=== PATIENT | female | born 1960 | race Caucasian/White ===

== ENCOUNTER 2018-09-11 05:41 | Inpatient (IN) | payer BC ==
--- NOTE | 2018-08-31 18:31 | HP ---
HISTORY AND PHYSICAL: DATE OF ADMISSION/SURGERY: 09/11/18 DATE OF OFFICE VISIT: 08/31/18 SURGEON: Di Li MD * (DICTATED BY MARYLOU BAILEY) PROCEDURE: Right total knee arthroplasty. CHIEF COMPLAINT: Right knee pain. HISTORY OF PRESENT ILLNESS: Ms. Feliciano is a 57-year-old female with continued complaints of right knee pain. She has failed conservative treatment and elected to proceed with a right total knee arthroplasty. PAST MEDICAL HISTORY: Hypertension, psoriatic arthritis, anxiety, sleep apnea, and diverticulitis. PAST SURGICAL HISTORY: Bowel resection. CURRENT MEDICATIONS: 1. Humira. 2. Methotrexate 2.5 mg. 3. Amlodipine/benazepril 5/10 mg daily. 4. Alprazolam 0.5 mg . 5. Glucosamine chondroitin complex. 6. Cetirizine 5 mg daily. 7. Famotidine 20 mg daily. 8. Folic acid 1 mg a day. 9. Zolpidem 5 mg q.h.s. as needed. ALLERGIES: To PENICILLIN. FAMILY HISTORY: RA and coronary artery disease. SOCIAL HISTORY: She is a 57-year-old female. She lives with her . She does not smoke or use drugs. Uses occasional alcohol. REVIEW OF SYSTEMS: A complete 14-point review of systems was reviewed with the patient. It was positive for some occasional vertigo. She denies history of DVT, PE, hepatitis, HIV or anesthesia problems. PHYSICAL EXAMINATION GENERAL: She is well developed, well nourished, in no acute distress. VITAL SIGNS: She stands 63 inches tall, weighs 243 pounds. Blood pressure is 122/86, heart rate is 80. HEENT: Normocephalic, atraumatic. NECK: Supple. No palpable lymph nodes. PULMONARY: The lungs are clear to auscultation bilaterally. CARDIO: Regular rate and rhythm. Strong S1, S2. ABDOMEN: Soft, nontender, nondistended. NEUROLOGICAL: She is alert and oriented x3. MUSCULOSKELETAL: Right lower extremity, the skin is intact. There are no open wounds or abrasions. There is a moderate joint effusion. She has some tenderness over the medial and lateral joint line. Range of motion is 5 to 120 degrees of flexion. 2+ dorsalis pedis pulse, intact sensation. Her lower extremity muscle group strengths are intact at 5/5. ASSESSMENT AND PLAN: Ms. Feliciano is a 57-year-old female with end-stage osteoarthritis of the right knee. She has failed conservative treatment and elected to proceed with a right total knee arthroplasty. Surgery is scheduled for 09/11/[address] Li discussed the risks and benefits of the surgery at today's visit and all of her questions were answered. She will follow up with Dr. Li in 2 weeks after the surgery. MARYLOU BAILEY [id number]/[facility] #: [id number] MTDCari
[~2018-09-11 05:41] MED LIST: Buffered Lidocaine 1% SYRIN* 1 ML/SYRINGE INTRADERM ONE; Tranexamic Acid 1,000 MG in NS 0.9% 50 ML* (outpatient use) IV SCH
--- OUTSIDE RECORDS SUMMARY | 2018-09-11 05:44 | XMS REPORT | Continuity of Care Document ---
:1960 External Reference #:[id number] Author Name Brandie Cullen Care Team Providers Name Role Phone Irma Hernandez MD Primary Care Physician Unavailable Payers Type Date Identification Numbers Payment Provider Subscriber Policy Number: [id number] [employer] Marlee Feliciano PayID: [id number] [address] [address] [place] [address] Advance Directives Description No Information Available Problems Date Description Provider Status Onset: 06/20/2018 Psoriasis with arthropathy Di Li M.D. Active Onset: 06/20/2018 Morbid obesity Di Li M.D. Active Onset: 06/20/2018 Localized, primary osteoarthritis Di Li M.D. 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 ETOH Use Occasionally consumes alcohol Tobacco Use Start: Unknown End: Patient is a former smoker Unknown Smoking Status Reviewed: 08/31/18 Patient is a former smoker Exercise Type/Frequency Exercises sporadically Allergies, Adverse Reactions, Alerts Date Description Reaction Status Severity Comments 06/20/2018 Penicillin Active Medications Medication Date Status Form Strength Qnty SIG Indications Ordering Provider Humira Pen Active PNKT 40mg/0.8ML Lefty Amador MD Methotrexate Active Tablets 2.5mg Amador, Sodium MD Joselito Amlodipine Active Capsules 5-10mg Cannariato, Besylate/Benazepr Irma Avendaño MD Alprazolam Active Tablets 0.5mg Shareeariadontae Irma Avendaño MD Turmeric Active Unknown 00 Glucosamine Active Unknown Chondroitin 00 Complex Cetirizine HCL Active Tablets 5mg Unknown 00 Immunizations Description No Information Available Vital Signs Date Vital Result Comment 08/31/2018 8:55am Height 63.5 inches 5'3.50" Weight 243.00 lb Heart Rate 80 /min BP Systolic 122 mmHg BP Diastolic 86 mmHg Respiratory Rate 12 /min Body Temperature 97.9 F Pain Level 26 BMI (Body Mass Index) 42.4 kg/m2 06/20/2018 8:12am Height 63.5 inches 5'3.50" Weight 242.00 lb Heart Rate 76 /min BP Systolic 114 mmHg BP Diastolic 60 mmHg BMI (Body Mass Index) 42.2 kg/m2 Results Description No Information Available Procedures Date Code Description Status 08/09/2016 91398 Treadmill Interp/Report Only Completed 08/09/2016 85502 Stress Test Supervsn W/Out I/R Completed 08/09/2016 50977 EKG, Interpretation Only Completed 10/14/2013 03423 ECHO Transthorasic Realtime 2D W Doppler & Color Flow Hosp Completed 10/14/2013 03183 Treadmill Interp/Report Only Completed 10/14/2013 75187 Stress Test Supervsn W/Out I/R Completed 10/14/2013 19618 EKG, Interpretation Only Completed 10/13/2013 04054 EKG, Interpretation Only Completed Encounters Type Date Location Provider Dx Diagnosis Office Visit 06/20/2018 [facility], M25.561 Pain in right 8:00a [facility] knee M25.461 Effusion, right knee M17.11 Unilateral primary osteoarthritis, right knee E66.01 Morbid (severe) obesity due to excess calories L40.50 Arthropathic psoriasis, unspecified Z68.41 Body mass index (BMI) 40.0-44.9, adult Office Visit 08/10/2016 12:25p [facility] Kaylan R07.9 Chest pain, Assocmarylou M.D. unspecified Hospitalists I10 Essential (primary) hypertension Office Visit 08/08/2016 [facility] Cande Vogel R07.9 Chest pain, 12:24p marylou Parra M.D. unspecified Hospitalists I10 Essential (primary) hypertension Office Visit 10/15/2013 11:18a [facility] Emmie 786.51 Pain Precordial Assoc,marylou Walalce D.O. Hospitalists 401.9 Hypertension Unspec 696.0 Psoriatic Arthropathy Office Visit 10/13/2013 [facility] 786.51 Pain Precordial 11:17a Assoc,marylou Pruitt M.D. Hospitalists 401.9 Hypertension Unspec 696.0 Psoriatic Arthropathy Plan of Treatment Future Appointment(s):09/11/2018 7:30 am - Shorty Canas PA-C at [facility].09/11/2018 7:30 am - MARYLOU Marie at [facility].09/11/2018 7:30 am - Di Li M.D. at [facility]..08/31/2018 - Di Li M.D.M25.561 Pain in right kneeFollow up:Follow up: 2 weeks after rgyrnazP79.461 Effusion, right kneeM17.11 Unilateral primary osteoarthritis, right knee
[2018-09-11] MEDS ORDERED: Famotidine IV* 10 MG/ML 2 ML (20 mg) IV ONE (06:00)
[2018-09-11] MEDS ORDERED: Lactated Ringers 1000 ML Bag* 1,000 ML IV SCH (06:00)
[2018-09-11] MEDS ORDERED: Acetaminophen TAB* 325 MG PO ONE (06:00)
[2018-09-11] MEDS ORDERED: Gabapentin CAP(*) 300 MG PO ONE (06:00)
[2018-09-11] MEDS ORDERED: ROPIVACAINE 5 MG/ML 30 ML BTL (0.5%) ONE ×2 (06:51→06:53)
[2018-09-11] MEDS ORDERED: Ondansetron INJ* 2 MG/ML VIAL ONE (06:53)
[2018-09-11] MEDS ORDERED: Dexamethasone IV* 4 MG/ML 1 ML (4 MG) ONE (06:53)
[2018-09-11] MEDS ORDERED: fentaNYL* 50 MCG/ML 2 ML VIAL (100 MCG VIAL) ONE ×3 (06:53→11:05)
[2018-09-11] MEDS ORDERED: Propofol* 10 MG/ML 20 ML BTL ONE (06:53)
[2018-09-11] MEDS ORDERED: KETAMINE HCL* 50 MG/ML 10 ML VIAL ONE (06:53)
[2018-09-11] MEDS ORDERED: Lidocaine 2% PF * 5 ML VIAL ONE ×2 (06:53→08:35)
[2018-09-11] MEDS ORDERED: Midazolam* 1 MG/ML 10 ML VIAL (10 MG) ONE (06:54)
[2018-09-11] MEDS ORDERED: Acetaminophen TAB* 325 MG ONE (07:12)
[2018-09-11] MEDS ORDERED: Gabapentin CAP(*) 300 MG ONE (07:12)
[2018-09-11] MEDS ORDERED: Famotidine IV* 10 MG/ML 2 ML (20 mg) ONE (07:12)
[2018-09-11] MEDS ORDERED: Clindamycin 900 MG/D5W BAG(*) 900 MG/50 ML BAG IVPB ONE (07:12)
[2018-09-11] MEDS ORDERED: Phenylephrine INJ* 10 MG/ML 1 ML VIAL (10 MG) ONE (08:25)
[2018-09-11] MEDS ORDERED: fentaNYL* 50 MCG/ML 5 ML VIAL (250 MCG VIAL) ONE (08:33)
[2018-09-11] MEDS ORDERED: Propofol* 500 MG/50 ML BTL ONE (08:35)
[2018-09-11] MEDS ORDERED: Ketorolac INJ* 30 MG/ML 1 ML VIAL ONE (09:36)
[2018-09-11] MEDS ORDERED: Naloxone* 0.4 MG/ML 1 ML VIAL IV PRN (09:39)
[2018-09-11] MEDS ORDERED: Ondansetron INJ* 2 MG/ML VIAL IV PRN ×2 (09:39→10:32)
[2018-09-11] MEDS ORDERED: HYDROmorphone INJ1* 1 MG/ML SYRINGE IV PRN (09:39)
[2018-09-11] MEDS ORDERED: HYDROmorphone INJ1* 1 MG/ML SYRINGE ONE (10:13)
[2018-09-11] MEDS ORDERED: diPHENhydraMINE IV* 50 MG/ML 1 ml VIAL (BENADRYL) IV PRN (10:32)
[2018-09-11] MEDS ORDERED: traMADol TAB* 50 MG PO PRN (10:32)
[2018-09-11] MEDS ORDERED: Polyethylene Glycol 3350* 17 GM PACKET PO PRN (10:32)
[2018-09-11] MEDS ORDERED: Magnesium Hydroxide LIQ* 30 ML UDC PO PRN (10:32)
[2018-09-11] MEDS ORDERED: Bisacodyl SUPP* 10 MG SUPP PR PRN (10:32)
[2018-09-11] MEDS ORDERED: oxyCODONE/Acetamin 5/325 MG* TAB PO PRN (10:32)
[2018-09-11] MEDS ORDERED: Ondansetron TAB* 4 MG PO PRN (10:32)
[2018-09-11] MEDS: fentaNYL* 50 MCG/ML 2 ML VIAL (100 MCG VIAL) IV PRN ×3 (10:34→11:06)
[2018-09-11] MEDS ORDERED: Zolpidem TAB* 5 MG PO PRN ×2 (10:36→11:43)
[2018-09-11] MEDS ORDERED: ALPRAZOLAM 0.5 MG PO PRN (10:36)
[2018-09-11] MEDS ORDERED: ALPRAZolam TAB* 0.25 MG PO PRN (11:42)
[2018-09-11] MEDS ORDERED: Morphine INJ* 2 MG/ML 1 ML SYRINGE (TWO MG - NEW SYRINGE VERSION) ONE (11:43)
--- NOTE | 2018-09-11 11:46 | CONSULT ---
Subjective Date of Service: 09/11/18 Interval History: 57 yr old female with pmh of htn, psoriatic arthritis, anxiety, sleep apnea ( uses cpap), and diverticulitis; who presented today for an elective right total knee replacement after failing conservative treatment for knee pain. On assessment patient is resting in PACU on room air. States pain in right knee is controlled. Denies cp, palpitations, nausea, vomiting, diarrhea, fever, chills, sob, numbness/tingling. Family History: Unchanged from Admission Social History: Unchanged from Admission Past Medical History: Unchanged from Admission Review of Systems - Measurements Intake and Output: Intake and Output Last 24 Hours 09/09/18 09/10/18 09/11/18 09/12/18 06:59 06:59 06:59 06:59 Intake Total 1950 Output Total 400 Balance 1550 Weight 111.584 kg Intake: IV Fluids 1850 LR 1800 NS 50ML, Cefazolin 2G 50 Oral 100 Output: Sapp 400 - Review of Systems Constitutional Symptoms: Negative: Weakness, Fever HEENT: Positive: Normal Eyes: Positive: Normal Pulmonary: Negative: Cough, Wheezing, Shortness of Breath, Home Oxygen - but does use CPAP for MICHELLE Cardiology: Negative: Chest Pain, Shortness of Breath, Palpitations Gastroenterology: Positive: Other - Reports last BM was this morning Negative: Abdominal Pain, Nausea, Vomiting Musculoskeletal: Positive: Arthritis - Reports hx of psoriatic arthritis Negative: Joint Pain Endocrinology: Negative: Diabetes Mellitus Neurology: Negative: Headache, Numbness\Paresthesiae Objective Active Medications: Acetaminophen (Tylenol Tab*) 975 mg PO ONCE ONE Stop: 09/11/18 06:01 Last Admin: 09/11/18 07:21 Dose: 975 mg Acetaminophen (Tylenol Tab*) 975 mg PO Q8H KAMILLE Bisacodyl (Dulcolax Supp*) 10 mg FL DAILY PRN PRN Reason: constipation Cyclobenzaprine HCl (Flexeril Tab*) 10 mg PO TID PRN PRN Reason: SPASMS Diphenhydramine HCl (Benadryl Iv*) 12.5 mg IV Q6H PRN PRN Reason: PRURITIS Docusate Sodium (Colace Cap*) 100 mg PO BID KAMILLE Enoxaparin Sodium (Lovenox(*)) 40 mg SUBCUT Q24H KAMILLE Famotidine (Pepcid Iv*) 20 mg IV ONCE ONE Stop: 09/11/18 06:01 Last Admin: 09/11/18 07:21 Dose: 20 mg Fentanyl Citrate (Fentanyl*) 50 mcg IV Q5M PRN PRN Reason: PAIN - MODERATE Last Admin: 09/11/18 11:06 Dose: 50 mcg Gabapentin (Neurontin Cap(*)) 300 mg PO ONCE ONE Stop: 09/11/18 06:01 Last Admin: 09/11/18 07:21 Dose: 300 mg Hydromorphone HCl (Dilaudid Inj1s*) 0.5 mg IV Q10M PRN PRN Reason: PAIN - SEVERE Lactated Ringer's (Lactated Ringers 1000 Ml Bag*) 1,000 mls @ 125 mls/hr IV PER RATE KAMILLE Tranexamic Acid 1,000 mg/ (Sodium Chloride) 60 mls @ 120 mls/hr IV ONCE Stop: 09/11/18 23:59 Clindamycin HCl/Dextrose (Cleocin 600 Mg Ivpremix(*) Sdv) 600 mg in 50 mls @ 100 mls/hr IV Q8H KAMILLE Stop: 09/12/18 03:29 Lactated Ringer's (Lactated Ringers 1000 Ml Bag*) 1,000 mls @ 100 mls/hr IV PER RATE KAMILLE Lactulose (Lactulose*) 30 ml PO Q6H PRN PRN Reason: constipation Lidocaine/Sodium Bicarbonate (Buffered Lidocaine 1% Syrin*) 0.2 ml INTRADERM ONCE ONE Stop: 09/10/18 13:18 Last Admin: 09/11/18 10:34 Dose: Not Given Magnesium Hydroxide (Milk Of Magnesia Liq*) 30 ml PO BID KAMILLE Magnesium Hydroxide (Milk Of Magnesia Liq*) 30 ml PO Q6H PRN PRN Reason: constipation Morphine Sulfate (Morphine Vial*) 2 mg IV Q2H PRN PRN Reason: PAIN Naloxone HCl (Narcan*) 0.08 mg IV Q2M PRN PRN Reason: severe induced resp depression Non-Formulary Medication (Famotidine) 20 mg PO BEDTIME KAMILLE Non-Formulary Medication (Alprazolam [Alprazolam Er]) 0.5 mg PO DAILY PRN PRN Reason: ANXIETY Ondansetron HCl (Zofran Inj*) 4 mg IV ONCE PRN PRN Reason: NAUSEA/VOMITING Ondansetron HCl (Zofran Inj*) 4 mg IV Q6H PRN PRN Reason: nausea Ondansetron HCl (Zofran Tab*) 4 mg PO Q6H PRN PRN Reason: NAUSEA Oxycodone HCl (Roxycodone Tab*) 10 mg PO Q4H PRN PRN Reason: SEVERE PAIN Oxycodone/Acetaminophen (Percocet 5/325 Tab*) 1 tab PO Q4H PRN PRN Reason: PAIN Oxycodone/Acetaminophen (Percocet 5/325 Tab*) 2 tab PO Q4H PRN PRN Reason: PAIN Polyethylene Glycol/Electrolytes (Miralax*) 17 gm PO DAILY PRN PRN Reason: Constipation Tramadol HCl (Ultram*) 50 mg PO Q6H PRN PRN Reason: PAIN Warfarin Sodium (Coumadin Tab(*)) 6 mg PO ONCE@1700 ONE; Protocol Stop: 09/11/18 17:01 Zolpidem Tartrate (Ambien Tab*) 5 mg PO BEDTIME PRN PRN Reason: SLEEP Vital Signs - 8 hr 09/11/18 09/11/18 09/11/18 07:15 10:30 10:31 Temperature 97.3 F 97.3 F Pulse Rate 90 72 72 Respiratory 16 9 22 Rate Blood Pressure 125/79 111/76 (mmHg) O2 Sat by Pulse 97 97 95 Oximetry 09/11/18 09/11/18 09/11/18 10:34 10:36 10:41 Temperature Pulse Rate 66 71 Respiratory 18 17 14 Rate Blood Pressure 126/71 123/78 (mmHg) O2 Sat by Pulse 98 98 Oximetry 09/11/18 09/11/18 09/11/18 10:46 10:47 11:00 Temperature Pulse Rate 69 71 Respiratory 16 18 14 Rate Blood Pressure 130/77 (mmHg) O2 Sat by Pulse 99 100 Oximetry 09/11/18 09/11/18 09/11/18 11:01 11:06 11:16 Temperature Pulse Rate 75 72 Respiratory 16 Rate Blood Pressure 112/78 116/75 (mmHg) O2 Sat by Pulse 100 98 Oximetry 09/11/18 09/11/18 11:30 11:31 Temperature 98.6 F Pulse Rate 66 Respiratory Rate Blood Pressure 119/76 (mmHg) O2 Sat by Pulse 100 Oximetry Oxygen Devices in Use Now: None Appearance: Well appearing, NAD Ears/Nose/Mouth/Throat: Clear Oropharnyx, Mucous Membranes Moist Respiratory: Symmetrical Chest Expansion and Respiratory Effort, Clear to Auscultation Cardiovascular: NL Sounds; No Murmurs; No JVD, RRR, No Edema Abdominal: NL Sounds; No Tenderness; No Distention Lymphatic: No Cervical Adenopathy Extremities: No Clubbing, Cyanosis Skin: No Rash or Ulcers, - - Dressing to right knee is CDI Neurological: Alert and Oriented x 3 Assessment/Plan - Billing Plan By Medical Problem: 1. S/P Right total knee replacement: Management per ortho 2. HTN: Patient's current BP is 119/76. Due to her post op status I would recommend holding her Amlodipine/Benazepril for today (as she takes it in the evening). Monitor her BP routinely and reassess restarting medication. It would also be possible to restart one component of this medication at a time such as starting with Amlodipine and last adding ROSITA. Either way, I have discontinued it for this evening. 3. Psoriatic Arthritis: Patient was instructed by her rheum provider to hold her Tamika and Methotrexate 2 weeks prior to surgery which she did. She reports he/she instructed her to restart one week after surgery. This can be deferred to primary care and rheum specialist 4. Anxiety: Patient takes Alprazolam 0.5 mg daily as needed which can be continued. I have added instruction to hold for sedation. 5. MICHELLE: Patient is compliant and wears CPAP at night. Her has brought her machine in for her, therefore, I have placed on order for patient to use own CPAP. I have also placed an ordered to have patient's pulse oximetry monitored overnight. 6. Hx of diverticulitis: No signs/symptoms. Cont bowel medications. Last BM today prior to surgery per patient. VTE PPX: Per ortho management who has ordered Lovenox and Coumadin Diet: Patient can have a regular diet as tolerated Code Status: Full Code Admission Status and Rationale: Patient is inpatient for right total knee replacement. Thank you for allowing us to assist in this patient's care. We will follow along with you during her hospital stay. Attending: Kaylan Patten
[2018-09-11] MEDS ORDERED: oxyCODONE TAB* 5 MG TAB ONE (12:14)
[2018-09-11] MEDS: oxyCODONE TAB* 5 MG TAB PO PRN ×3 (12:18→21:01)
[2018-09-11] MEDS: Lactated Ringers 1000 ML Bag* 1,000 ML IV SCH ×2 (12:18→22:17)
--- NOTE | 2018-09-11 14:24 | PN ---
Progress Note - Progress Note Date of Service: 09/11/18 Note: patient resting comfortably in bed with no complaints of pain. able to dorsi felx/plantar flex, intact sensation and 2+ DP pulse; dressing c/d/i
[2018-09-11] MEDS: Acetaminophen TAB* 325 MG PO SCH (16:44)
[2018-09-11] MEDS: Clindamycin 600 MG IVPREMIX(* 600 MG/50 ML SDV IV SCH (16:53)
[2018-09-11] MEDS ORDERED: Warfarin TAB(*) 6 MG PO ONE (17:00)
[2018-09-11] MEDS ORDERED: AMLODIPINE BESYLATE PO SCH (21:00)
[2018-09-11] MEDS ORDERED: BENAZEPRIL PO SCH (21:00)
[2018-09-11] MEDS: Docusate CAP* 100 MG PO SCH (21:00)
[2018-09-11] MEDS: Famotidine TAB* 20 MG PO SCH (21:00)
[2018-09-11] MEDS: Magnesium Hydroxide LIQ* 30 ML UDC PO SCH (21:02)
[2018-09-12] MEDS: Acetaminophen TAB* 325 MG PO SCH ×3 (01:09→15:46)
[2018-09-12] MEDS: oxyCODONE/Acetamin 5/325 MG* TAB PO PRN ×2 (01:10→06:00)
[2018-09-12] MEDS: Clindamycin 600 MG IVPREMIX(* 600 MG/50 ML SDV IV SCH ×2 (01:12→08:20)
--- NOTE | 2018-09-12 02:26 | OP ---
DATE OF OPERATION: 09/11/18 - ROOM #332 DATE OF : 60 ATTENDING SURGEON: Di Li MD PONY EDGER: MARYLOU Garnica. Ms. Hoffman did help throughout the procedure with preparation of the leg, wound retraction, manipulation of the knee, and wound closure. ANESTHESIOLOGIST: Dr. Rosa. ANESTHESIA: General. PRE-OP DIAGNOSIS: Severe end-stage degenerative osteoarthritis of the right knee joint. POST-OP DIAGNOSIS: Severe end-stage degenerative osteoarthritis of the right knee joint. OPERATIVE PROCEDURE: Right total knee arthroplasty. TOURNIQUET TIME: 50 minutes. COMPLICATIONS: None. SPECIMEN: Bone and cartilage from the right knee joint sent to Pathology. HARDWARE USED: This is [employer] cemented total knee arthroplasty hardware. For the cement, two packages of Simplex bone cement. For the femur, a size 6 right narrow posterior stabilized Legion Oxinium femoral component. For the tibia, a size 5 right tibial base plate, Rosario II. For the insert, an 11 mm posterior stabilized, size 5/6 articular insert. For the patella, a 32 mm 3-peg All-Poly patella. BRIEF HISTORY/INDICATION: Ms. Feliciano is a 57-year-old female with years of increasingly severe right knee pain. She failed conservative treatment with antiinflammatories, pain medication, intraarticular injections, and physical therapy. Due to continued pain and decreased quality of life, she elected to undergo right total knee arthroplasty. Radiographs showed [id number] arthritis. Informed consent was obtained from the patient. She understood the risks of surgery included, but were not limited to, bleeding, infection, damage to nearby structures, continued pain, need for further surgery, intraoperative fracture, nerve palsy, hardware failure or loosening, knee stiffness, loss of motion, stroke, heart attack, blood clot, and . The patient wished to proceed. INTRAOPERATIVE FINDINGS: Intraoperatively, the patient was noted to have severe end-stage arthritis with complete loss of cartilage in the medial and patellofemoral compartments. She had extensive osteophyte formation. DESCRIPTION OF PROCEDURE: Ms. Feliciano was identified in the preanesthesia unit. Her right lower extremity was marked as the correct operative side. Informed consent was signed and placed in the chart. The patient was taken to the operating room and placed under general anesthesia. A Sapp catheter was placed. Tourniquet was placed on the right thigh. Right lower extremity was prepped and draped in the usual sterile fashion. Preoperative time-out was made to once again correctly identify the patient, side, and site. Appropriate perioperative antibiotics were given within 1 hour of incision. Tourniquet was inflated and total tourniquet time for this procedure was 50 minutes. A midline incision was made with a 10 blade and carried down to the extensor mechanism. A new 10 blade was used to make a standard medial parapatellar arthrotomy. Patella was subluxed laterally. Electrocautery was used to subperiosteally elevate the soft tissue off the superomedial tibia to the mid sagittal plane. The knee was flexed up. The anterior horn of the lateral meniscus and ACL were sharply released. A drill was used to enter the distal femur. Intramedullary distal femoral cutting guide was pinned on the distal femur. Oscillating saw was used to make the distal femoral cut. Next, the PCL was completely released and the tibia was subluxed anteriorly. Extramedullary tibial cutting guide was pinned on the proximal tibia. Oscillating saw was used to make the proximal tibial cut perpendicular to the mechanical axis of the tibia. The bone was carefully removed. The knee was brought out into full extension. A spacer block had good fit with the knee in full extension. The medial and lateral ligaments were well balanced. Flexion and extension gaps were well balanced. The knee was flexed up. The lamina ground service equipment mechanic was placed both medially and laterally. Any remaining meniscus was carefully removed using electrocautery. Curved osteotome was used to remove any posterior osteophytes. Tibial tray and drop norma were placed and once again confirmed the satisfactory tibial cut. A size 6 narrow right femoral trial was impacted on to the distal femur and had excellent fit and stability. The box for the posterior stabilized implant was prepared using a reamer and box cut osteotome. Size 5 tibial tray trial with an 11 mm insert trial was placed and the knee was taken through range of motion. The knee had full extension, to 125 degrees of flexion limited only by the patient's body habitus. Patellofemoral tracking was satisfactory. The patella was everted. Oscillating saw was used to remove 9 mm of patellar bone cartilage. Patella was sized to a size 32. Three peg holes were drilled through the size 32 guide. 32 patellar trial was placed and the knee was taken through range of motion. There was satisfactory patellofemoral tracking. All trials were removed. Tibia was subluxed anteriorly and sized to a size 5. Proximal tibia was prepared using a size 5 keel punch. All bony cut surfaces were copiously irrigated with sterile saline and dried. Final implants were cemented into place starting with the tibia , followed by the femur, and last the patella. An 11 mm insert trial was placed while the knee was brought out into full extension. Tourniquet was turned down at 50 minutes. Electrocautery was used to obtain meticulous hemostasis. The knee was copiously irrigated with sterile saline. Once the cement had fully cured, the insert trial was removed. Any excess cement was removed from around the capsule and hardware. The 11 mm insert trial was placed and locked into position on the tibial tray. Stability of the insert was checked and rechecked and noted to be stable. Next, the knee was copiously irrigated with sterile saline. The extensor mechanism was closed using interrupted #1 Vicryl. The rest of the incision was closed in a layered fashion using 0 and 2-0 Vicryl. Skin was closed using running 3-0 nylon suture. Sterile Xeroform, 4x4s, and Webril were used to cover the incision. The patient's anesthesia was reversed without difficulty. She was taken to the PACU in stable condition. Intended weightbearing will be weightbearing as tolerated. Intended DVT prophylaxis will be Eliquis. [id number] #: [id number] PRAVEEN
[2018-09-12 06:17] LABS: INR 1.03 (0.77-1.02)
[2018-09-12 06:18] LABS: Hematocrit 33 % (35-47); Platelet Count 199 10^3/ul (150-450)
[2018-09-12 06:40] LABS: BUN/Creatinine Ratio 22.1 (8-20); Calcium 8.5 mg/dL (8.6-10.3); EGFR African American 107.9 (>60); EGFR Non-African American 89.2 (>60); Potassium 4.3 mmol/L (3.5-5.0)
[2018-09-12] MEDS: oxyCODONE TAB* 5 MG TAB PO PRN (08:17)
[2018-09-12] MEDS: Docusate CAP* 100 MG PO SCH ×2 (08:17→21:56)
[2018-09-12] MEDS: Magnesium Hydroxide LIQ* 30 ML UDC PO SCH ×2 (08:17→21:56)
[2018-09-12] MEDS: Apixaban* 2.5 MG TAB PO SCH ×2 (09:41→21:44)
--- NOTE | 2018-09-12 11:06 | PN ---
Subjective Date of Service: 09/12/18 Interval History: Pt states that she is feeling ok. She has been up with PT this morning. Currently her pain is 6/10 and tolerable. She slept well with CPAP in place. She denies CP, SOB, cough, fever/chills, abd pain, n/v/d/c, LE pain or swelling , calf tenderness. Family History: Unchanged from Admission Social History: Unchanged from Admission Past Medical History: Unchanged from Admission Objective Active Medications: Acetaminophen (Tylenol Tab*) 975 mg PO Q8H [facility] Alprazolam (Xanax Tab*) 0.25 mg PO Q12H PRN Apixaban (Eliquis*) 2.5 mg PO BID [facility] Bisacodyl (Dulcolax Supp*) 10 mg IA DAILY PRN Cyclobenzaprine HCl (Flexeril Tab*) 10 mg PO TID PRN Diphenhydramine HCl (Benadryl Iv*) 12.5 mg IV Q6H PRN Docusate Sodium (Colace Cap*) 100 mg PO BID [facility] Famotidine (Pepcid Tab*) 20 mg PO BEDTIME [facility] Lactated Ringer's (Lactated Ringers 1000 Ml Bag*) 1,000 mls @ 100 mls/hr IV PER RATE [facility] Lactulose (Lactulose*) 30 ml PO Q6H PRN Magnesium Hydroxide (Milk Of Magnesia Liq*) 30 ml PO BID [facility] Magnesium Hydroxide (Milk Of Magnesia Liq*) 30 ml PO Q6H PRN Morphine Sulfate (Morphine Inj ((Syringe))*) 2 mg IV Q2H PRN Ondansetron HCl (Zofran Inj*) 4 mg IV Q6H PRN Ondansetron HCl (Zofran Tab*) 4 mg PO Q6H PRN Oxycodone HCl (Roxycodone Tab*) 10 mg PO Q4H PRN Oxycodone/Acetaminophen (Percocet 5/325 Tab*) 1 tab PO Q4H PRN Oxycodone/Acetaminophen (Percocet 5/325 Tab*) 2 tab PO Q4H PRN Polyethylene Glycol/Electrolytes (Miralax*) 17 gm PO DAILY PRN Tramadol HCl (Ultram*) 50 mg PO Q6H PRN Zolpidem Tartrate (Ambien Tab*) 5 mg PO BEDTIME PRN Vital Signs: Temp Pulse Resp BP Pulse Ox 98.7 F 74 16 110/66 100 09/12/18 04:34 09/12/18 04:27 09/12/18 08:17 09/12/18 04:27 09/12/18 06:03 Oxygen Devices in Use Now: None, CPAP Appearance: Pt is sitting in recliner with b/l LE elevated. She appears well, in no acute distress. She is cooperative and appropriate. Eyes: No Scleral Icterus, PERRLA Ears/Nose/Mouth/Throat: NL Teeth, Lips, Gums, Clear Oropharnyx, Mucous Membranes Moist Neck: NL Appearance and Movements; NL JVP, Trachea Midline Respiratory: Symmetrical Chest Expansion and Respiratory Effort, Clear to Auscultation Cardiovascular: NL Sounds; No Murmurs; No JVD, RRR, No Edema Abdominal: NL Sounds; No Tenderness; No Distention, No Hepatosplenomegaly Extremities: No Edema, No Clubbing, Cyanosis - Cryotherapy in place. Dressings CDI. B/l LE sensation to light touch intact. Radial and pedal pulses palpable. Neurological: Alert and Oriented x 3, NL Sensation Result Diagrams: 09/12/18 05:59 09/12/18 05:59 Assess/Plan/Problems-Billing Pt is a 57yof with PMHx HTN, psoriatic arthritis, MICHELLE with CPAP use, anxiety, and diverticulosis who is admitted s/p RTKA. - Patient Problems (1) Status post total right knee replacement Comment: -Management per ortho team (2) HTN (hypertension) Comment: -Pt normotensive -Continue to hold Amlodipine/Benazepril -Continue to monitor for need to restart (3) MICHELLE (obstructive sleep apnea) Comment: -Pt has CPAP machine from home -Continue nightly use (4) Psoriatic arthritis Current Visit: Yes Status: Acute Code(s): L40.50 - ARTHROPATHIC PSORIASIS, UNSPECIFIED SNOMED Code(s): 137307991 Comment: -Tamika and Methotrexate held 2 weeks prior to sx and restart 1 week post-op, per rheum -Hold now and restart as instructed -Follow up with PCP or rhematologist (5) DVT prophylaxis Comment: -Per ortho team; pt on Elaquis (6) Full code status Status and Disposition: Inpatient. Discharge per ortho.
[2018-09-12] MEDS ORDERED: HYDROcodone/ACETAMIN 5-325 MG* 1 TAB PO PRN (11:58)
[2018-09-12] MEDS ORDERED: Enoxaparin(*) 40 MG/0.4 ML SYR SUBCUT SCH (12:00)
--- NOTE | 2018-09-12 12:05 | PN ---
Progress Note - Progress Note Date of Service: 09/12/18 SOAP: Subjective: []Patient was seen and examined at bedside. Denies CP, SOB, dizziness, nausea. Complains that percocet makes her feel "groggy", otherwise feels well. Knee pain is rated 6/10 just after activity with PT. Objective: [] General: Well appearing, NAD RLE: Right knee dressing CDI, cryo unit in use, thigh is soft, DF/PF intact, sensation intact to light touch distally, DP2+, capillary refill less than two seconds distally Calves supple and nontender without erythema, edema or palpable cords Assessment: []POD 2 sp right total knee replacement Plan: []WBAT PT/OT Changed DVT propylaxis to eliquis 2.5 mg po BID x 30 days. Pt likely to go home before INR would be therapeutic. Changed pain med from percocet to norco per pt request Intend DC to home tomorrow. Vital Signs Temp 98.7 F 09/12/18 04:34 Pulse 74 09/12/18 04:27 Resp 16 09/12/18 08:17 BP 110/66 09/12/18 04:27 Pulse Ox 100 09/12/18 06:03 Intake & Output 09/11/18 09/12/18 09/12/18 18:59 06:59 18:59 Intake Total 2150 2001 1204 Output Total 1100 1875 300 Balance 1050 126 904 Weight 246 lb Intake: IV Fluids 1850 1001 ABX - CLINDAMYCIN 53 LR 1800 948 NS 50ML, Cefazolin 2G 50 IVPB 1084 ABX - CLINDAMYCIN 104 LR 980 Oral 300 1000 120 Output: Urine 300 Sapp 1100 1875 Laboratory Last Values Hgb 11.0 g/dl (12.0-16.0) L 09/12/18 05:59 Hct 33 % (35-47) L 09/12/18 05:59 Plt Count 199 10^3/ul (150-450) 09/12/18 05:59 MPV 8.0 fL (7.4-10.4) 09/12/18 05:59 INR (Anticoag Therapy) 1.03 (0.77-1.02) H 09/12/18 05:59 Sodium 137 mmol/L (135-145) 09/12/18 05:59 Potassium 4.3 mmol/L (3.5-5.0) 09/12/18 05:59 Chloride 105 mmol/L (101-111) 09/12/18 05:59 Carbon Dioxide 26 mmol/L (22-32) 09/12/18 05:59 Anion Gap 6 mmol/L (2-11) 09/12/18 05:59 BUN 15 mg/dL (6-24) 09/12/18 05:59 Creatinine 0.68 mg/dL (0.51-0.95) 09/12/18 05:59 Est GFR ( Amer) 107.9 (>60) 09/12/18 05:59 Est GFR (Non-Af Amer) 89.2 (>60) 09/12/18 05:59 BUN/Creatinine Ratio 22.1 (8-20) H 09/12/18 05:59 Glucose 129 mg/dL (70-100) H 09/12/18 05:59 Calcium 8.5 mg/dL (8.6-10.3) L 09/12/18 05:59
[2018-09-12] MEDS: HYDROcodone/ACETAMIN 5-325 MG* 1 TAB PO PRN ×3 (14:28→22:52)
[2018-09-12] MEDS: Morphine INJ* 2 MG/ML 1 ML SYRINGE (TWO MG - NEW SYRINGE VERSION) IV PRN ×2 (19:15→21:43)
[2018-09-12] MEDS: Cyclobenzaprine TAB* 10 MG PO PRN (21:43)
[2018-09-12] MEDS: Famotidine TAB* 20 MG PO SCH (21:44)
[2018-09-13] MEDS: Acetaminophen TAB* 325 MG PO SCH ×3 (00:01→15:52)
[2018-09-13] MEDS: HYDROcodone/ACETAMIN 5-325 MG* 1 TAB PO PRN ×4 (03:13→20:51)
[2018-09-13] MEDS: Cyclobenzaprine TAB* 10 MG PO PRN ×2 (05:51→13:38)
[2018-09-13 06:17] LABS: Hematocrit 34 % (35-47); Hemoglobin 11.6 g/dl (12.0-16.0); Mean Platelet Volume 8.1 fL (7.4-10.4); Platelet Count 196 10^3/ul (150-450)
[2018-09-13] MEDS: Magnesium Hydroxide LIQ* 30 ML UDC PO SCH ×2 (09:21→20:51)
[2018-09-13] MEDS: Docusate CAP* 100 MG PO SCH ×2 (09:21→20:51)
[2018-09-13] MEDS: Apixaban* 2.5 MG TAB PO SCH ×2 (09:21→20:51)
--- NOTE | 2018-09-13 09:43 | PN ---
Progress Note - Progress Note Date of Service: 09/13/18 SOAP: Subjective: []Pt seen and examined at bedside. She feels well without CP, SOB, dizziness, nausea. She feels barriers to DC home are bed mobility and mobility to the bathroom. Her knee pain is rated 5/10 after activity. Objective: []General: Well appearing, NAD RLE: Right knee dressing changed, incision CDI, cryo unit in use, thigh is soft , DF/PF intact, sensation intact to light touch distally, DP2+, capillary refill less than two seconds distally Calves supple and nontender without erythema, edema or palpable cords Assessment: []POD 2 sp right total knee replacement Plan: []WBAT PT/OT, PT to help with mobility concerns DVT propylaxis eliquis 2.5 mg po BID x 30 days. Intend DC to home this afternoon if meets goals with PT Vital Signs Temp 98.9 F 09/13/18 07:36 Pulse 82 09/13/18 07:36 Resp 20 09/13/18 08:07 BP 137/65 09/13/18 07:36 Pulse Ox 94 09/13/18 07:36 Intake & Output 09/12/18 09/13/18 09/13/18 18:59 06:59 18:59 Intake Total 1704 75 Output Total 1600 950 600 Balance 104 -875 -600 Intake: IVPB 1084 ABX - CLINDAMYCIN 104 LR 980 Oral 620 75 Output: Urine 1600 950 600 Laboratory Last Values Hgb 11.6 g/dl (12.0-16.0) L 09/13/18 06:00 Hct 34 % (35-47) L 09/13/18 06:00 Plt Count 196 10^3/ul (150-450) 09/13/18 06:00 MPV 8.1 fL (7.4-10.4) 09/13/18 06:00 INR (Anticoag Therapy) 1.03 (0.77-1.02) H 09/12/18 05:59 Sodium 137 mmol/L (135-145) 09/12/18 05:59 Potassium 4.3 mmol/L (3.5-5.0) 09/12/18 05:59 Chloride 105 mmol/L (101-111) 09/12/18 05:59 Carbon Dioxide 26 mmol/L (22-32) 09/12/18 05:59 Anion Gap 6 mmol/L (2-11) 09/12/18 05:59 BUN 15 mg/dL (6-24) 09/12/18 05:59 Creatinine 0.68 mg/dL (0.51-0.95) 09/12/18 05:59 Est GFR ( Amer) 107.9 (>60) 09/12/18 05:59 Est GFR (Non-Af Amer) 89.2 (>60) 09/12/18 05:59 BUN/Creatinine Ratio 22.1 (8-20) H 09/12/18 05:59 Glucose 129 mg/dL (70-100) H 09/12/18 05:59 Calcium 8.5 mg/dL (8.6-10.3) L 09/12/18 05:59
--- NOTE | 2018-09-13 14:19 | PN ---
Subjective Date of Service: 09/13/18 Interval History: Patient seen and examined. States she is in a lot of pain since PT this morning. Denies SOB, no chest pain, no further complaints. Family History: Unchanged from Admission Social History: Unchanged from Admission Past Medical History: Unchanged from Admission Objective Active Medications: Acetaminophen (Tylenol Tab*) 975 mg PO Q8H [facility] Last Admin: 09/13/18 08:06 Dose: 325 mg Hydrocodone Bitart/Acetaminophen ([place] 5-325 Tab*) 1 tab PO Q4H PRN PRN Reason: PAIN - MODERATE Last Admin: 09/12/18 12:39 Dose: 1 tab Hydrocodone Bitart/Acetaminophen ([place] 5-325 Tab*) 2 tab PO Q4H PRN PRN Reason: PAIN - SEVERE Last Admin: 09/13/18 11:59 Dose: 2 tab Alprazolam (Xanax Tab*) 0.25 mg PO Q12H PRN PRN Reason: ANXIETY Apixaban (Eliquis*) 2.5 mg PO BID [facility] Last Admin: 09/13/18 09:21 Dose: 2.5 mg Bisacodyl (Dulcolax Supp*) 10 mg NC DAILY PRN PRN Reason: constipation Cyclobenzaprine HCl (Flexeril Tab*) 10 mg PO TID PRN PRN Reason: SPASMS Last Admin: 09/13/18 13:38 Dose: 10 mg Diphenhydramine HCl (Benadryl Iv*) 12.5 mg IV Q6H PRN PRN Reason: PRURITIS Docusate Sodium (Colace Cap*) 100 mg PO BID [facility] Last Admin: 09/13/18 09:21 Dose: 100 mg Famotidine (Pepcid Tab*) 20 mg PO BEDTIME [facility] Last Admin: 09/12/18 21:44 Dose: 20 mg Lactated Ringer's (Lactated Ringers 1000 Ml Bag*) 1,000 mls @ 100 mls/hr IV PER RATE [facility] Last Admin: 09/11/18 22:17 Dose: 100 mls/hr Lactulose (Lactulose*) 30 ml PO Q6H PRN PRN Reason: constipation Magnesium Hydroxide (Milk Of Magnesia Liq*) 30 ml PO BID [facility] Last Admin: 09/13/18 09:21 Dose: 30 ml Magnesium Hydroxide (Milk Of Magnesia Liq*) 30 ml PO Q6H PRN PRN Reason: constipation Morphine Sulfate (Morphine Inj ((Syringe))*) 2 mg IV Q2H PRN PRN Reason: PAIN Last Admin: 09/12/18 21:43 Dose: 2 mg Ondansetron HCl (Zofran Inj*) 4 mg IV Q6H PRN PRN Reason: nausea Ondansetron HCl (Zofran Tab*) 4 mg PO Q6H PRN PRN Reason: NAUSEA Oxycodone HCl (Roxycodone Tab*) 10 mg PO Q4H PRN PRN Reason: SEVERE PAIN Last Admin: 09/12/18 08:17 Dose: 10 mg Polyethylene Glycol/Electrolytes (Miralax*) 17 gm PO DAILY PRN PRN Reason: Constipation Tramadol HCl (Ultram*) 50 mg PO Q6H PRN PRN Reason: PAIN Zolpidem Tartrate (Ambien Tab*) 5 mg PO BEDTIME PRN PRN Reason: SLEEP Vital Signs - 8 hr 09/13/18 09/13/18 09/13/18 07:36 08:07 11:12 Temperature 98.9 F 98.4 F Pulse Rate 82 77 Respiratory 16 20 16 Rate Blood Pressure 137/65 113/45 (mmHg) O2 Sat by Pulse 94 96 Oximetry 09/13/18 09/13/18 11:59 13:38 Temperature Pulse Rate Respiratory 16 16 Rate Blood Pressure (mmHg) O2 Sat by Pulse Oximetry Oxygen Devices in Use Now: None Appearance: Alert, mild distress Eyes: No Scleral Icterus, PERRLA Ears/Nose/Mouth/Throat: NL Teeth, Lips, Gums Neck: NL Appearance and Movements; NL JVP, Trachea Midline Respiratory: Symmetrical Chest Expansion and Respiratory Effort, Clear to Auscultation Cardiovascular: NL Sounds; No Murmurs; No JVD, RRR Abdominal: NL Sounds; No Tenderness; No Distention Extremities: No Edema, No Clubbing, Cyanosis Skin: No Rash or Ulcers Neurological: Alert and Oriented x 3, NL Sensation Nutrition: Taking PO's Result Diagrams: 09/13/18 06:00 09/12/18 05:59 Assess/Plan/Problems-Billing Pt is a 57yof with PMHx HTN, psoriatic arthritis, MICHELLE with CPAP use, anxiety, and diverticulosis who is admitted s/p RTKA. - Patient Problems (1) Status post total right knee replacement Code(s): Z96.651 - PRESENCE OF RIGHT ARTIFICIAL KNEE JOINT SNOMED Code(s): 6780220906769 Comment: - POD2, POC as per ortho - Pain control, PT/OT, bowel regimen - DVT prophylaxis with apixiban (2) MICHELLE (obstructive sleep apnea) Code(s): G47.33 - OBSTRUCTIVE SLEEP APNEA (ADULT) (PEDIATRIC) SNOMED Code(s): 57412335 Comment: - Pt has CPAP machine from home (3) Psoriatic arthritis Code(s): L40.50 - ARTHROPATHIC PSORIASIS, UNSPECIFIED SNOMED Code(s): 597778582 Comment: - Tamika and Methotrexate held 2 weeks prior to sx and to restart 1 week post- op, per rheumatology (4) HTN (hypertension) Current Visit: No Code(s): I10 - ESSENTIAL (PRIMARY) HYPERTENSION SNOMED Code(s): 35593326 Comment: - Restart Amlodipine/Benazepril at discharge (5) DVT prophylaxis Code(s): MAK7224 - SNOMED Code(s): 833325292 Comment: - Brenda (6) Full code status Code(s): Z78.9 - OTHER SPECIFIED HEALTH STATUS SNOMED Code(s): 053983665 Status and Disposition: Inpatient. Discharge per ortho. Medically optimized.
[2018-09-13] MEDS: Famotidine TAB* 20 MG PO SCH (20:51)
[2018-09-14] MEDS: Acetaminophen TAB* 325 MG PO SCH ×2 (01:50→07:39)
[2018-09-14 05:54] LABS: Hematocrit 36 % (35-47); Hemoglobin 12.2 g/dl (12.0-16.0); Mean Platelet Volume 8.3 fL (7.4-10.4); Platelet Count 199 10^3/ul (150-450)
[2018-09-14] MEDS: HYDROcodone/ACETAMIN 5-325 MG* 1 TAB PO PRN (06:27)
[2018-09-14] MEDS: Apixaban* 2.5 MG TAB PO SCH (07:40)
[2018-09-14] MEDS: Magnesium Hydroxide LIQ* 30 ML UDC PO SCH (07:40)
[2018-09-14] MEDS: Cyclobenzaprine TAB* 10 MG PO PRN (07:40)
[2018-09-14] MEDS: Docusate CAP* 100 MG PO SCH (07:40)
[2018-09-14 08:21] VITALS: BP 116/52
--- NOTE | 2018-09-14 09:32 | PN ---
Progress Note - Progress Note Date of Service: 09/14/18 SOAP: Subjective: []Patient seen at bedside, pain well managed. Denies SOB, CP, palpitations or dizziness. Objective: [] Vital Signs Temp 100.1 F 09/14/18 07:32 Pulse 82 09/14/18 07:32 Resp 16 09/14/18 07:54 BP 116/52 09/14/18 07:32 Pulse Ox 100 09/14/18 07:54 Intake & Output 09/13/18 09/14/18 09/14/18 18:59 06:59 18:59 Intake Total 680 850 Output Total 1700 700 Balance -1020 150 Intake: Oral 680 850 Output: Urine 1700 700 Other: Date of Last Bowel 09/14/2018 Movement # Bowel Movements 1 Estimated Stool Amount Medium Laboratory Results - last 24 hr 09/14/18 05:40 Hgb 12.2 Hct 36 Plt Count 199 MPV 8.3 Right knee incision benign calf NT and soft +Df right ankle sensation intact Assessment: []s/p RTK POD #3 Plan: []PT/OT WBAT RLE Home today Eliquis for DVT prophylaxis follow up 10-14 days as scheduled with Dr. Li
--- NOTE | 2018-09-14 16:35 | DS ---
DISCHARGE SUMMARY: DATE OF ADMISSION: 09/11/18 DATE OF DISCHARGE: 09/14/18 ATTENDING PHYSICIAN: Dr. Di Li.* (DICTATED BY MARYLOU HA) ADMISSION DIAGNOSIS: Severe end-stage degenerative osteoarthritis of the right knee joint. DISCHARGE DIAGNOSIS: Severe end-stage degenerative osteoarthritis of the right knee joint. SURGERY PERFORMED: Right total knee arthroplasty. HOSPITAL COURSE: The patient is a 57-year-old female with increasingly severe right knee pain. She failed conservative management with anti-inflammatories, pain medication, intraarticular injections, and physical therapy. Due to continued pain and decreased quality of life, she elected to proceed with right total knee arthroplasty. She was taken to the operating room under the care of Dr. Di Li on the date of 09/11/18. She tolerated the procedure well and left the operating room in stable condition. Postoperatively, she progressed satisfactorily with physical therapy and occupational therapy goals, bearing weight as tolerated on the right lower extremity. It was felt that she was stable medically and orthopedically for discharge to home on the date of . CONDITION ON DISCHARGE: Her temperature was 100, pulse rate 82, respiratory rate 18, O2 saturation 100% on room air, blood pressure 116/52. Her right knee incision was healing without evidence of erythema or drainage. Her calf remained soft and nontender. Her neurovascular status is intact. Active dorsiflexion of the right ankle without difficulty. PLAN: Discharge to home. She was going to participate in outpatient physical therapy. She was provided with a prescription of Eliquis 2.5 mg p.o. b.i.d. for DVT prophylaxis for the next 30 days, prescription of [place] 5/325 one to two tablets q.4 hours p.r.n. pain, #56 and Flexeril 10 mg 1 p.o. t.i.d. p.r.n. muscle spasm or pain, #60, no refills; sent to [facility] in [place] for pickup. She is scheduled to follow up with Dr. Li in the office in roughly 10 to 14 days. All questions were answered. MARYLOU HA [id number]/[facility] #: [id number] [place]
== END 2018-09-14 12:30 | disposition home or self-care (01) | DRG 302 ==
LOC: AA 05:41 → SSU 10:32
PROVIDERS: ADMIT Orthopaedic Surgery Adult Reconstructive Orthopaedic Surgery; ATTEND Orthopaedic Surgery Adult Reconstructive Orthopaedic Surgery
PROC: 0SRC069 Replacement of Right Knee Joint with Oxidized Zirconium on Polyethylene Synthetic Substitute, Cemented, Open Approach (ICD-10-PCS; principal; 2018-09-11 07:30)
DX: M17.11 Unilateral primary osteoarthritis, right knee (principal); Z68.41 Body mass index [BMI] 40.0-44.9, adult; I10 Essential (primary) hypertension; L40.50 Arthropathic psoriasis, unspecified; Z88.0 Allergy status to penicillin; M25.461 Effusion, right knee; G47.33 Obstructive sleep apnea (adult) (pediatric); F41.1 Generalized anxiety disorder; K76.0 Fatty (change of) liver, not elsewhere classified; E66.9 Obesity, unspecified; K21.9 Gastro-esophageal reflux disease without esophagitis; K57.90 Diverticulosis of intestine, part unspecified, without perforation or abscess without bleeding; R31.9 Hematuria, unspecified; M25.761 Osteophyte, right knee; R42 Dizziness and giddiness; Z82.61 Family history of arthritis; Z82.49 Family history of ischemic heart disease and other diseases of the circulatory system; Z72.89 Other problems related to lifestyle; Z83.49 Family history of other endocrine, nutritional and metabolic diseases; Z87.891 Personal history of nicotine dependence
CPT/HCPCS: 36415; 80048; 85014; 85018; 85049; 85610; 88305; 88311; A9270-GY; C1776; J1100; J1170; J1885; J2250; J2270; J2405; J2704; J2795; J3010